=== PATIENT | female | born 1965 | race Caucasian/White ===

== ENCOUNTER 2024-01-11 21:11 | Emergency (ER) | payer SELFPAY ==
[~2024-01-11] VITALS: Ht 167.6 cm; Wt 124.7 kg
[2024-01-11 21:32] VITALS: PULSE 80; RESP 18; TEMP 96.2; O2SAT 95
[2024-01-11 23:19] VITALS: PULSE 80; RESP 18; TEMP 96.2; O2SAT 95
== END 2024-01-11 23:19 | disposition home or self-care (01) ==
LOC: SED 21:11
DX: S63.502A Unspecified sprain of left wrist, initial encounter (principal); Z88.1 Allergy status to other antibiotic agents; W18.39XA Other fall on same level, initial encounter; Y93.89 Activity, other specified; Y92.89 Other specified places as the place of occurrence of the external cause; Y99.8 Other external cause status
CPT/HCPCS: 99283